=== PATIENT | female | born 1945 ===

== ENCOUNTER 2025-04-09 08:00 | Outpatient (CLI) | payer OTHER ==
[~2025-04-09] VITALS: Ht 152.4 cm; Wt 67.6 kg
[2025-04-09 11:57] LABS: URINE APPEARANCE Cloudy; URINE BILIRRUBIN Negative (NEGATIVE); URINE BLOOD NHT; URINE COLOR Yellow; URINE GLUCOSE Negative (NEGATIVE); URINE KETONE Negative (NEGATIVE); URINE LEUKOCYTE Large; URINE NITRATE Positive; URINE PROTEIN Negative (NEGATIVE); URINE UROBILINOGEN 0.2 E.U./dl
[2025-04-09 11:58] LABS: URINE EPITHELIAL CELLS 57.0 uL (0.0-38.8); URINE RBC 10.5 uL (0.0-20.8); URINE WBC 946.5 uL (0.0-23.2)
[2025-04-09] MEDS ORDERED: COZAAR100 MG PO (12:04)
[2025-04-09] MEDS ORDERED: PEPCID40 MG PO (12:04)
[2025-04-09] MEDS ORDERED: OMEPRAZOLE40 MG PO (12:05)
[2025-04-09] MEDS ORDERED: TOPROL XL50 M1 PO (12:05)
[2025-04-09 12:06] LABS: BASO % 1.2 % (0.1-1.2); EOS # 0.26 (0.04-0.54); EOS % 3.5 % (0.7-7.0); LYMPH # 2.68 (1.18-3.74); LYMPH % 35.6 % (19.3-53.1); MEAN PLATELET VOLUME 11.10 fl (9.4-12.4); MONO # 0.64 (0.24-0.82); MONO % 8.5 % (4.7-12.5); NEUT # 3.84 (1.56-6.13); NEUT % 50.9 % (34.0-71.1); RED CELL DISTRIBUTION WIDTH 15.5 % (11.6-14.4)
[2025-04-09] MEDS ORDERED: NIFEDIPINE ER30 M1 PO (12:06)
[2025-04-09] MEDS ORDERED: EZALLOR SPRINKLE5 MG (12:06)
[2025-04-09] MEDS ORDERED: ORTHO DF 3,7751 EACH (12:06)
[2025-04-09 12:07] VITALS: BP 160/90
[2025-04-09 12:09] LABS: URINE BACTERIA > 9821.5 uL (0.0-1933); URINE CAST 1.17 uL (0.0-1.40)
[2025-04-09 12:27] LABS: INR 1.0
[2025-04-09 12:57] LABS: ALT/SGPT 14.0 U/L (12-78); AST/SGOT 16.0 U/L (15-37); BILIRUBIN TOTAL 0.55 mg/dL (0.3-1.2); BUN CREA RATIO 20.0 (7.0-25.0); CREATININE SERUM 0.7 mg/dL (0.55-1.02); GFR 80.31; GLOBULINA 3.4 G/DL (2.4-3.5); GLUCOSE FASTING 86.0 mg/dL (65-100); OSMOLALITY SERUM 290.0 MOSM/KG (275-295)
== END 2025-04-12 08:30 | disposition home or self-care (01) ==
LOC: LAB 08:00 → ADM 10:15 → LAB 04-12 08:30 → CIR.AMB 04-12 09:15 → EDSTATUS 04-12 10:15 → CIR.AMB 04-12 10:15
PROVIDERS: ATTEND Surgery
DX: K40.90 Unilateral inguinal hernia, without obstruction or gangrene, not specified as recurrent (principal)